=== PATIENT | female | born 1995 | race Two or more races ===

== ENCOUNTER 2024-05-30 14:01 | Emergency (ER) | payer OTHER ==
[~2024-05-30] VITALS: Ht 165.1 cm; Wt 65.8 kg
[2024-05-30] MEDS ORDERED: SUMATRIPTAN SUCCINATE 6 MG/0.5 ML VIAL SUBCUTANEO STA (16:12)
[2024-05-30 16:59] LABS: HEMATOCRIT 38.6 % (36.0-45.00); MEAN CORPUSCULAR HEMOGLOBIN 30.6 pg (27.00-32.0); MEAN CORPUSCULAR HGB CONC 33.6 g/dl (32.0-36.0); PLATELET COUNT 227 K/uL (150-450); RED BLOOD COUNT 4.25 M/uL (4.00-6.00); RED CELL DISTRIBUTION WIDTH 12.7 % (11.5-14.5)
[2024-05-30 17:34] LABS: CALCIUM 8.5 mg/dL (8.5-10.1); CREATININE SERUM 0.67 mg/dL (0.55-1.02); GFR 106.39; POTASSIUM 3.51 mEq/L (3.5-5.1)
== END 2024-05-30 20:28 | disposition home or self-care (01) ==
LOC: ER 14:03
PROVIDERS: General Practice
DX: G43.909 Migraine, unspecified, not intractable, without status migrainosus (principal); Z88.6 Allergy status to analgesic agent

== ENCOUNTER 2025-03-12 16:14 | Emergency (ER) | payer OTHER ==
[~2025-03-12] VITALS: Ht 165.1 cm; Wt 68.0 kg
[2025-03-12 18:24] LABS: BASO % 0.5 % (0.1-1.2); EOS # 0.03 (0.04-0.54); EOS % 0.5 % (0.7-7.0); LYMPH # 1.37 (1.18-3.74); LYMPH % 23.3 % (19.3-53.1); MEAN PLATELET VOLUME 10.10 fl (9.4-12.4); MONO # 0.60 (0.24-0.82); MONO % 10.2 % (4.7-12.5); NEUT # 3.85 (1.56-6.13); NEUT % 65.3 % (34.0-71.1); RED CELL DISTRIBUTION WIDTH 12.1 % (11.6-14.4)
[2025-03-12 19:08] LABS: COVID-19 AG POSITIVE (NEGATIVE)
[2025-03-12] MEDS ORDERED: GILTUSS HONEY118 ML PO (19:21)
== END 2025-03-12 20:49 | disposition home or self-care (01) ==
LOC: ER 16:14
DX: U07.1 COVID-19 (principal); Z88.6 Allergy status to analgesic agent